=== PATIENT | female | born 1985 | race Two or more races ===

== ENCOUNTER → 2024-07-16 | Outpatient (CLI) | payer MEDICAID, SELFPAY ==
--- NOTE | 2024-07-16 13:30 | XR_ITS ---
Examination: Ultrasound soft tissue left labia TECHNIQUE: Grayscale sonographic images soft tissue left labia Date and time: July 16, 2024 1556 hours FINDINGS: Cystic mass in the left labia majora, 2.5 x 1.2 x 2.4 cm IMPRESSION: Soft tissue cystic mass at the area of concern as above
== END | disposition home or self-care (01) ==
PROVIDERS: PCP Nurse Practitioner Family; Referring Provider Nurse Practitioner Family; Visit Provider Nurse Practitioner Family
DX: N89.8 Other specified noninflammatory disorders of vagina (principal)
CPT/HCPCS: 76705

== ENCOUNTER 2024-09-16 13:32 | Emergency (ER) | payer MEDICAID, SELFPAY ==
[2024-09-16 13:35] VITALS: BMI 35.7
[2024-09-16 13:53] VITALS: BP 125/82; PULSE 79; RESP 20; TEMP 36.7; O2SAT 97
--- NOTE | 2024-09-16 13:58 | PD.EDRME ---
Rapid Medical Screening Exam E Arrival date/time: 09/16/24 13:32 39-year-old female with no known medical history presents to the emergency room with a chief complaint of an abscess to her vaginal area that began Saturday and has progressively gotten worse. I have greeted and performed a focused initial assessment of this patient. A comprehensive ED assessment and evaluation of the patient, analysis of all test results, and completion of the medical decision making process will be conducted by additional ED providers. Chief Complaint: General Adult/Misc Complain Vital signs: Vital Signs Temperature 98.1 F 09/16/24 13:53 Pulse Rate 79 09/16/24 13:53 Respiratory Rate 20 09/16/24 13:53 Blood Pressure 125/82 09/16/24 13:53 Pulse Oximetry (%) 97 09/16/24 13:53 Oxygen Delivery Method Room Air 09/16/24 13:53 Vital signs reviewed by provider: Yes
[2024-09-16 14:29] LABS: Collection Type, Urine Clean Catch
[2024-09-16 14:34] LABS: Bilirubin,Urine Negative (Negative); Blood,Urine 1+ (Negative); Clarity,Urine Clear (Clear/Hazy); Color,Urine Yellow (Lt Yel-Yel); Culture Indicated,Urine Not Indicated; Glucose, Urine Negative (Negative); Ketones,Urine Negative (Negative); Leukocyte Esterase,Urine Negative (Negative); Nitrite,Urine Negative (Negative); PH,Urine 6.5 (5.0-7.0); Protein,Urine Trace (Neg - Trace); RBC,Urine 6 /hpf (0-3); Specific Gravity,Urine 1.024 (1.001-1.035); Squamous Epithelial Cell,Urine 2 /hpf (0-5); Urobilinogen,Urine 2.0 mg/dL (0.0-1.0); WBC,Urine 2 /hpf (0-5)
--- NOTE | 2024-09-16 17:23 | EDNOTE_ITS ---
<Statement entered by Jeannette Lynch MD - 09/21/24 17:25> As co-signing physician, I was present and available for consult prn. I concur with the plan and care as documented by the midlevel provider. ED General RME/HPI General Chief complaint: General Adult/Misc Complain Stated complaint: BALL ON INTIMATE PART SENT BY PCP FOR CARE Time Seen by Provider: 09/16/24 17:04 Arrival date/time: 09/16/24 13:32 RME / HPI RME / HPI narrative: 39-year-old female with no known medical history presents to the emergency room with a chief complaint of an abscess to her vaginal area that began Saturday and has progressively gotten worse. Severity of symptoms moderate. Patient denies any fever. Denies any other complaints. Patient told me that several months ago she had the same episode and was given antibiotic which resolved on its own. This time it hurts to walk. Seen by PCP and was referred here for further management Related Data Previous Rx's ?Medication ?Instructions ?Recorded Cyclobenzaprine * (FLEXERIL *) 10 mg PO HS PRN HEADACH E #10 tabs 01/28/16 naproxen 500 mg tablet (Naprosyn) 500 mg PO Q12H #20 t abs 03/22/17 aluminum-mag hydroxide-simethicone 10 ml PO TID PRN dy spepsia #355 mL 03/26/22 200 mg-200 mg-20 mg/5 mL oral susp (Advanced Antacid-Antigas) clindamycin HCl 300 mg capsule 300 mg PO Q8H 7 days #2 1 caps 09/16/24 ibuprofen 800 mg tablet 800 mg PO Q8H PRN pain #30 t abs 09/16/24 Allergies Allergy/AdvReac Type Severity Reaction Status Date / Time No Known Allergies Allergy Verified 09/16/24 13:38 Review of Systems Review of Systems Narrative Review of Systems: Review of system reviewed and within normal limits except mentioned in HPI ED Exam Narrative Physical exam: VITAL SIGNS: Reviewed. GENERAL APPEARANCE: Alert and interactive, follows commands, no acute distress, HEAD AND FACE: Non-traumatic. ENT: PERRL, pink conjunctivitis, eyelid no trauma, Mucous membrane moist. NECK: Supple, nontender, no nuchal rigidity. CHEST: No tenderness, no crepitus, no paradoxical movement, no retractions. LUNGS: Clear, well ventilated, symmetric, no rales, no wheezing, no ronchi, no stridor, good breath sounds bilaterally. HEART: Regular rate, regular rhythm, no murmur, no gallops. ABDOMEN: Soft, positive bowel sounds, nondistended, no guarding, nontender, no rebound, no masses, RECTAL: Deferred. GENITAL: 4 x 4 centimeter fluctuant swelling, left inferior aspect of the vaginal wall NEUROLOGICAL: Gross motor function intact sensory function intact, Appropriate for age. MUSCULOSKELETAL: low back nontender, full range of motion. EXTREMITIES: Nontender, full range of motion. SKIN: Color pink, dry, no rash, no lacerations, no abrasions, no contusions. LYMPHATICS: Deferred. Course Quality Measures none Orders Category Date Time Status Pelvic Exam X1 Care 09/16/24 13:57 Active UA, C/S IF [Urinalysis, C/S if Indicated] Stat Lab 09/16/24 14:24 Completed Acetaminophen Tab [Tylenol ES Tab] Med 09/16/24 17:22 Once 1,000 mg PO X1 ONE Clindamycin [Cleocin] Med 09/16/24 17:22 Once 300 mg PO X1 ONE Ketorolac Inj [Toradol Inj] Med 09/16/24 17:22 Once 30 mg IM X1 ONE Vital Signs Vital signs: Vital Signs Temperature 98.1 F 09/16/24 13:53 Pulse Rate 79 09/16/24 13:53 Respiratory Rate 20 09/16/24 13:53 Blood Pressure 125/82 09/16/24 13:53 Pulse Oximetry (%) 97 09/16/24 13:53 Oxygen Delivery Method Room Air 09/16/24 13:53 PROCEDURES: Abscess I/D Site: other (Vaginal area) Side (if applicable): left Sedation/analgesia: none Local Anesthetic: lidocaine 1% Amount of anesthesia used (mL): 8 Technique: incised with #11 blade Amount of fluid expressed (mL): 10 Irrigation: Yes Packing used?: plain Complications: pain Discharge Plan Plan Patient Disposition: HOME (Self Care) Discharge Disposition comment: Stable Prescriptions/Referrals Prescriptions/Med Rec: New ibuprofen 800 mg tablet 800 mg PO Q8H PRN (Reason: pain) Qty: 30 0RF clindamycin HCl 300 mg capsule 300 mg PO Q8H 7 Days Qty: 21 0RF No Action Cyclobenzaprine * (FLEXERIL *) 10 MG tablet 10 mg PO HS PRN (Reason: HEADACHE) Qty: 10 0RF naproxen [Naprosyn] 500 mg tablet 500 mg PO Q12H Qty: 20 0RF Rx Instructions: administer with food or milk alum-mag hydroxide-simeth [Advanced Antacid-Antigas] 200-200-20 mg/5 mL suspension 10 ml PO TID PRN (Reason: dyspepsia) Qty: 355 0RF Rx Instructions: administer between meals and at bedtime Referrals: No Primary/Family,Physician [Primary Care Provider] - In 1 week Problem List Clinical Impression: Infected cyst of Bartholin gland duct Patient/Caregiver Discharge Instructions Discharge Activity: activity as tolerated Education Materials: ED Bartholins Cyst IandD Additional Instructions: Thank you for the opportunity for serving you today. You are stable for discharged . You are advised to: Follow-up with your PCP in 1 to 2 days and asked for referral to [facility] [facility] Return to ED for worsening of symptoms Increase oral fluids Take medication as prescribed Please mobilize the packing by pulling 1 to 2 cm every day for the next 6 days and totally pull out in 6 days. Change the top dressing only Print Language: Tuvaluan Stand Alone Forms: Ashley Award Info., Patient Portal Info Letter HAIM/CHUCK Supervising Physician HAIM/CHUCK Supervising Physician: MD Caitlin [facility] Narrative MDM hospital course: 39-year-old female with no known medical history presents to the emergency room with a chief complaint of an abscess to her vaginal area that began Saturday and has progressively gotten worse. Severity of symptoms moderate. Patient denies any fever. Denies any other complaints. Patient told me that several months ago she had the same episode and was given antibiotic which resolved on its own. This time it hurts to walk. Seen by PCP and was referred here for further management Incision and drainage was done by me, see procedure notes. Patient tolerated the procedure well. patient received Toradol IM Tylenol, and clindamycin p.o. Patient appears nontoxic and hemodynamically stable .Decision to discharge the patient. The patient/family was given an opportunity to ask questions and understood their discharge instructions. Discharge instructions specifically included follow up provider and time frame, current and/or new medications and possible side effects, indications for sooner follow up or return to the emergency department, and the expected course of current diagnosis. Patient reports feeling better as well and giving evidence of significant clinical improvement, I believe patient is now a candidate for discharge. Lab Interpretation Lab(s) interpretation(s): Urinalysis came back unremarkable. Imaging Imaging interpretation: none Medication Administration(s) none Diagnosis Differential diagnosis: Vaginal cellulitis vaginal abscess Bartholin cyst abscess Most likely dx, and/or detailed dx discussion: Bartholin cyst abscess
[2024-09-16] MEDS: ACETAMINOPHEN 500 MG TABLET 1000 MG PO (17:50)
[2024-09-16] MEDS: CLINDAMYCIN 150 MG CAPSULE 300 MG PO (17:51)
[2024-09-16] MEDS: KETOROLAC INJ 60 MG/2 ML VIAL 30 MG IM (17:51)
== END 2024-09-16 18:23 | disposition home or self-care (01) ==
PROVIDERS: Nurse Practitioner Family; Emergency Provider Emergency Medicine
DX: N75.0 Cyst of Bartholin's gland (principal)
CPT/HCPCS: 81001; 96372; 99283; J1885; A9270

== ENCOUNTER 2024-09-18 11:12 | Emergency (ER) | payer MEDICAID, SELFPAY ==
[2024-09-18 11:14] VITALS: BMI 31.5
[2024-09-18 11:35] VITALS: BP 122/87; PULSE 81; RESP 17; TEMP 36.8; O2SAT 96
[2024-09-18 11:36] VITALS: BMI 31.5
--- NOTE | 2024-09-18 12:00 | EDNOTE_ITS ---
ED General RME/HPI General Chief complaint: Wound Recheck / Suture Removal Stated complaint: DRESSING CHANGE Time Seen by Provider: 09/18/24 11:30 Arrival date/time: 09/18/24 11:12 Patient is requesting repacking a packing from a Bartholin cyst abscess that had been drained several days ago. The packing is come out. Patient denies fever chills chest pain shortness of breath or difficulty breathing. Related Data Previous Rx's ?Medication ?Instructions ?Recorded Cyclobenzaprine * (FLEXERIL *) 10 mg PO HS PRN HEADACH E #10 tabs 01/28/16 naproxen 500 mg tablet (Naprosyn) 500 mg PO Q12H #20 t abs 03/22/17 aluminum-mag hydroxide-simethicone 10 ml PO TID PRN dy spepsia #355 mL 03/26/22 200 mg-200 mg-20 mg/5 mL oral susp (Advanced Antacid-Antigas) clindamycin HCl 300 mg capsule 300 mg PO Q8H 7 days #2 1 caps 09/16/24 ibuprofen 800 mg tablet 800 mg PO Q8H PRN pain #30 t abs 09/16/24 Allergies Allergy/AdvReac Type Severity Reaction Status Date / Time No Known Allergies Allergy Verified 09/18/24 11:13 Review of Systems Review of Systems Narrative Review of Systems: GEN: No fever, no chills, no weight loss EYES: No discharge, no visual changes, no pain HEENT: No ear pain, no congestion, no sore throat PULM: No shortness of breath, no cough, no congestion CV: No chest pain, no dyspnea on exertion, no palpitations GI: No nausea, no vomiting, no diarrhea, no pain, no constipation : No frequency, no urgency, no dysuria MUSC/SKEL: No joint pain, no back pain SKIN: No rash PSYCH: No hallucinations, no depression HEME/LYMPH: No easy bleeding or bruising tendencies NEURO: No weakness, no headache Past Medical History Past Medical History CARDIAC: Negative Cardiac Disorders or Congestive Heart Failure RESPIRATORY: Negative Chronic Obstructive Pulmonary Disease (COPD) or Asthma GENITOURINARY: Negative Renal Disease ENDOCRINE: Negative Diabetes Mellitus Type 1 or Diabetes Mellitus Type 2 HEMATOLOGIC: Negative Sickle Cell Disease Surgical History SURGICAL: Positive Pacemaker and Section (X2) Social History SMOKING STATUS: Never smoker ED Exam Narrative Physical exam: [General: Obese not in any acute distress Head normocephalic HEENT: Within acceptable limits Neck is supple nontender Chest equal chest rise nontender to palpation Respiratory: Clear to auscultation no wheezes crackles or rubs CV: Rate rhythm is regular no murmurs rubs or clicks Abdomen is distended secondary to body habitus soft nontender no masses positive bowel sounds all 4 quadrants Back: No CVA tenderness no spinous process tenderness from cervical spine thoracic and lumbar spine Skin: Left labial minora I&D site approximately 1 cm laceration minimal surrounding erythema no edema no exudate. Otherwise skin is intact no petechiae rash induration ulceration or crepitus Extremities: Moving all extremity against resistance cap refill less than 2 seconds neurosensory intact Neuro: Awake alert oriented x3 Glascow coma 15 no focal deficits] Course Course Course Narrative: Site was repacked with quarter inch plain gauze without complication patient tolerated the procedure well. Quality Measures none Vital Signs Vital signs: Vital Signs Temperature 98.2 F 09/18/24 11:35 Pulse Rate 81 09/18/24 11:35 Respiratory Rate 17 09/18/24 11:35 Blood Pressure 122/87 H 09/18/24 11:35 Pulse Oximetry (%) 96 09/18/24 11:35 Oxygen Delivery Method Room Air 09/18/24 11:35 Discharge Plan Plan Patient Disposition: HOME (Self Care) Patient condition on transfer: Stable Prescriptions/Referrals Prescriptions/Med Rec: No Action Cyclobenzaprine * (FLEXERIL *) 10 MG tablet 10 mg PO HS PRN (Reason: HEADACHE) Qty: 10 0RF naproxen [Naprosyn] 500 mg tablet 500 mg PO Q12H Qty: 20 0RF Rx Instructions: administer with food or milk ibuprofen 800 mg tablet 800 mg PO Q8H PRN (Reason: pain) Qty: 30 0RF clindamycin HCl 300 mg capsule 300 mg PO Q8H 7 Days Qty: 21 0RF alum-mag hydroxide-simeth [Advanced Antacid-Antigas] 200-200-20 mg/5 mL suspension 10 ml PO TID PRN (Reason: dyspepsia) Qty: 355 0RF Rx Instructions: administer between meals and at bedtime Referrals: De Ram MD [Physician] - In 1 week Problem List Clinical Impression: Dressing change Patient/Caregiver Discharge Instructions Other Activity Instructions:: Allow the packing to remain for the next several days each day pull a small amount further out and trim off. If packing comes out return to the provider. Continue take all your medications as prescribed. Print Language: Hungarian Stand Alone Forms: Ashley Award Info., Work/School Release, Patient Portal Info Letter PA/HAND STAMPER Supervising Physician PA/HAND STAMPER Supervising Physician: Ethan Hewitt ENP
== END 2024-09-18 12:06 | disposition home or self-care (01) ==
LOC: SERX 12:15
PROVIDERS: Emergency Provider Family Medicine; PCP Nurse Practitioner Family
DX: Z48.01 Encounter for change or removal of surgical wound dressing (principal); N75.0 Cyst of Bartholin's gland
CPT/HCPCS: 99282

== ENCOUNTER 2024-09-19 12:21 | Emergency (ER) | payer MEDICAID, SELFPAY ==
[2024-09-19 12:44] VITALS: BMI 30.2
[2024-09-19 12:45] VITALS: BP 134/92; PULSE 71; RESP 18; TEMP 36.8; O2SAT 97
--- NOTE | 2024-09-19 12:59 | EDNOTE_ITS ---
ED Wound/Laceration-RME/HPI General Chief Complaint: Wound Recheck / Suture Removal Stated Complaint: UNABLE TO REMOVE PACKING AT HOME Time Seen by Provider: 09/19/24 12:25 Arrival date/time: 09/19/24 12:21 39-year-old female with recent Bartholin cyst presents to the ER today for reevaluation of the Bartholin cyst Limitations: no limitations Related Data Previous Rx's ?Medication ?Instructions ?Recorded Cyclobenzaprine * (FLEXERIL *) 10 mg PO HS PRN HEADACH E #10 tabs 01/28/16 naproxen 500 mg tablet (Naprosyn) 500 mg PO Q12H #20 t abs 03/22/17 aluminum-mag hydroxide-simethicone 10 ml PO TID PRN dy spepsia #355 mL 03/26/22 200 mg-200 mg-20 mg/5 mL oral susp (Advanced Antacid-Antigas) ibuprofen 800 mg tablet 800 mg PO Q8H PRN pain #30 t abs 09/16/24 Allergies Allergy/AdvReac Type Severity Reaction Status Date / Time No Known Allergies Allergy Verified 09/18/24 11:13 Review of Systems Review of Systems Systems Reviewed: All systems reviewed, normal except as documented Constitutional Constitutional: Reports system reviewed and no additional complaints, except as documented, Denies fever(s) and Denies headache(s) Eyes Eyes: Reports system reviewed and no additional complaints, except as documented and Denies blurry vision ENT Ears, Nose, Mouth, and Throat: Reports system reviewed and no additional complaints, except as documented, Denies headache(s), Denies nasal congestion and Denies nasal discharge Cardiovascular Cardiovascular: Reports system reviewed and no additional complaints, except as documented, Denies chest pain and Denies dyspnea Respiratory Respiratory: Reports system reviewed and no additional complaints, except as documented, Denies chest congestion, Denies cough and Denies dyspnea Gastrointestinal Gastrointestinal: Reports system reviewed and no additional complaints, except as documented and Denies abdominal pain Genitourinary Genitourinary: Reports system reviewed and no additional complaints, except as documented and Reports other (Bartholin cyst vagina) Integumentary/Breasts Skin/Breast: Reports system reviewed and no additional complaints, except as documented and Denies rash Neurologic Neurologic: Reports system reviewed and no additional complaints, except as documented, Reports as per HPI and Denies headache(s) Past Medical History Past Medical History CARDIAC: Negative Cardiac Disorders or Congestive Heart Failure RESPIRATORY: Negative Chronic Obstructive Pulmonary Disease (COPD) or Asthma GENITOURINARY: Negative Renal Disease ENDOCRINE: Negative Diabetes Mellitus Type 1 or Diabetes Mellitus Type 2 HEMATOLOGIC: Negative Sickle Cell Disease Surgical History SURGICAL: Positive Pacemaker and Section (X2) Social History SMOKING STATUS: Never smoker ED Exam General Limitations: Present no limitations General appearance: Present alert and in no apparent distress Head Head exam: Present atraumatic, normocephalic and normal inspection Eye Eye exam: Present normal appearance, PERRL and EOMI; Absent conjunctival injection ENT ENT exam: Present normal exam, normal oropharynx and mucous membranes moist Neck Neck exam: Present normal inspection, full ROM and trachea midline Chest Chest inspection: Present normal inspection and symmetric chest wall rise Respiratory Respiratory exam: Present normal lung sounds bilaterally Cardiovascular Cardiovascular exam: Present regular rate, normal rhythm and normal heart sounds Abdominal Exam Abdominal exam: Present soft and normal bowel sounds Genitals Female CloseUp: 2 1. Bartholin cyst draining Extremities Exam Extremities exam: Present normal inspection and full ROM Back Exam Back exam: Present normal inspection and full ROM Neurological Exam Neurological exam: Present alert, oriented X3 and CN II-XII intact Psychiatric Psychiatric exam: Present normal affect and normal mood Skin Skin exam: Present warm, dry, intact and normal color Course Quality Measures none Vital Signs Vital signs: Vital Signs Temperature 98.2 F 09/19/24 12:45 Pulse Rate 71 09/19/24 12:45 Respiratory Rate 18 09/19/24 12:45 Blood Pressure 134/92 H 09/19/24 12:45 Pulse Oximetry (%) 97 09/19/24 12:45 Oxygen Delivery Method Room Air 09/19/24 12:45 O2 saturation 97% room air with normal limits Wound / Laceration MDM Narrative MDM Narrative:: 39-year-old female with recent Bartholin cyst presents to the ER today for reevaluation of the Bartholin cyst On exam patient has a Bartholin cyst which has improved significantly since first visit. Patient does have a small bit of packing which is removed wound is explored I do not believe repacking is necessary at this time Patient hemodynamically stable reports symptoms have significantly improved patient has no surrounding erythema Patient discharged home in no distress to follow-up with primary care doctor in the next 24 to 48 hours and for any worsening symptoms to return to the ER immediately Patient data External records reviewed:: [facility] previous records Clinical information provided by:: patient Social determinants that could affect healthcare access:: none Patient has the following chronic illnesses:: None How is presenting disease/condition affected by chronic disease/condition?: no chronic disease Evaluation data The following diagnostics were reviewed and interpreted by me:: other (specify) (N/A) Lab and/or radiology exams considered but not ordered:: Consider not ordered Interpretation Summary: N/A Medications / Prescriptions Medications or Prescriptions considered but not ordered:: Given no meds Medication administrations:: No meds Consultations Consultation(s) initiated? (list below): No Diagnosis Wound Differential Diagnosis: laceration, abscess and abrasion Most likely diagnosis given after review of the tests above:: Bartholin cyst Admission Indicated Admission indicated?: not indicated Admission Request Was there a request for admission?: No Disposition Plan Disposition Plan: Discharge Discharge Attestation Discharge Attestation: The patient and all family members were given an opportunity to ask questions and understood the discharge instructions. Discharge instructions specifically effects, indications for sooner follow up or return to the emergency department, and the expected course of current diagnosis. Patient condition: Stable Discharge Plan Plan Patient Disposition: HOME (Self Care) Discharge Disposition comment: Stable Prescriptions/Referrals Prescriptions/Med Rec: No Action Cyclobenzaprine * (FLEXERIL *) 10 MG tablet 10 mg PO HS PRN (Reason: HEADACHE) Qty: 10 0RF naproxen [Naprosyn] 500 mg tablet 500 mg PO Q12H Qty: 20 0RF Rx Instructions: administer with food or milk ibuprofen 800 mg tablet 800 mg PO Q8H PRN (Reason: pain) Qty: 30 0RF alum-mag hydroxide-simeth [Advanced Antacid-Antigas] 200-200-20 mg/5 mL suspension 10 ml PO TID PRN (Reason: dyspepsia) Qty: 355 0RF Rx Instructions: administer between meals and at bedtime Problem List Clinical Impression: Infected cyst of Bartholin gland duct, Change of dressing Patient/Caregiver Discharge Instructions Education Materials: Bartholin Cyst and Abscess Additional Instructions: Please follow up with your primary care doctor in the next 24-48hrs for any worsening symptoms return here immediately Print Language: Wolof Stand Alone Forms: Ashley Award Info., Patient Portal Info Letter PA/ART PSYCHOTHERAPIST OR THERAPIST Supervising Physician PA/ART PSYCHOTHERAPIST OR THERAPIST Supervising Physician: dr gupta
== END 2024-09-19 13:09 | disposition home or self-care (01) ==
LOC: SERX 13:19
PROVIDERS: Emergency Provider Nurse Practitioner Primary Care
DX: Z48.00 Encounter for change or removal of nonsurgical wound dressing (principal); N75.0 Cyst of Bartholin's gland
CPT/HCPCS: 99282

== ENCOUNTER → 2024-09-30 | Outpatient (CLI) | payer MEDICAID, SELFPAY ==
--- NOTE | 2024-09-30 | XR_ITS ---
Examination: Cervical spine 3 views Technique one AP lateral coned AP odontoid cervical spine 3 views Date and time: September 30, 2024 1131 hours INDICATIONS: Neck pain radiating to both shoulders beginning 2 weeks ago. FINDINGS: Satisfactory alignment cervical vertebral bodies. No cervical fracture. Intact odontoid. No significant cervical disc narrowing. IMPRESSION: No cervical fracture No significant cervical disc narrowing As clinically warranted, consider MRI cervical spine without contrast follow-up to assess for soft tissue disc protrusion producing radicular shoulder pain
--- NOTE | 2024-09-30 | XR_ITS ---
Examination: Shoulder,left, 3 views Technique: Shoulder AP internal rotation, AP external rotation, Y view shoulder, 3 views Exam date and time :September 30, 2024 1125 hours INDICATIONS: Left shoulder pain 2 weeks. FINDINGS: Moderate osteopenia. Mild narrowing glenohumeral joint. No shoulder fracture or dislocation. Negative for calcific tendinitis IMPRESSION: Mild narrowing glenohumeral joint
== END | disposition home or self-care (01) ==
LOC: CDIM 11:08
PROVIDERS: PCP Nurse Practitioner Family; Referring Provider Nurse Practitioner Family; Visit Provider Nurse Practitioner Family
DX: M75.52 Bursitis of left shoulder (principal); M25.812 Other specified joint disorders, left shoulder
CPT/HCPCS: 72040; 73030

== ENCOUNTER 2024-11-13 17:32 | Emergency (ER) | payer MEDICAID, SELFPAY ==
[2024-11-13 18:03] VITALS: BP 118/89; PULSE 64; RESP 18; TEMP 36.9; O2SAT 98; BMI 24.2
--- NOTE | 2024-11-13 18:32 | EDNOTE_ITS ---
ED Skin Abcess FB-RME/HPI General Chief complaint: Skin/Abscess/Foreign Body Stated complaint: Cysts need to be drained, vagina Time Seen by Provider: 11/13/24 18:19 Arrival date/time: 11/13/24 17:32 RME / HPI RME / HPI narrative: 39-year-old female patient came in for evaluation regarding swelling to her left lower labia. Been having the swelling, and goes for the last 1 month, was seen by PCP, and was started on doxycycline and clindamycin. Patient came here because thinking that we need to do I&D. Denies any fever denies any other complaints no medication was taken prior to ER visit scheduled to be seen by CABLE INSTALLER REPAIRER HELPER next week. Related Data Previous Rx's ?Medication ?Instructions ?Recorded Cyclobenzaprine * (FLEXERIL *) 10 mg PO HS PRN HEADACH E #10 tabs 01/28/16 naproxen 500 mg tablet (Naprosyn) 500 mg PO Q12H #20 t abs 03/22/17 aluminum-mag hydroxide-simethicone 10 ml PO TID PRN dy spepsia #355 mL 03/26/22 200 mg-200 mg-20 mg/5 mL oral susp (Advanced Antacid-Antigas) ibuprofen 800 mg tablet 800 mg PO Q8H PRN pain #30 t abs 09/16/24 ibuprofen 600 mg tablet 600 mg PO Q8H PRN pain #30 t abs 11/13/24 nystatin-triamcinolone 100,000 1 applic topical BID #6 0 grams 11/13/24 unit/gram-0.1 % topical ointment Allergies Allergy/AdvReac Type Severity Reaction Status Date / Time No Known Allergies Allergy Verified 11/13/24 17:37 Review of Systems Review of Systems Narrative Review of Systems: Review of system reviewed and within normal limits except mentioned in HPI ED Exam Narrative Physical exam: VITAL SIGNS: Reviewed. GENERAL APPEARANCE: Alert and interactive, follows commands, no acute distress, HEAD AND FACE: Non-traumatic. ENT: PERRL, pink conjunctivitis, eyelid no trauma, Mucous membrane moist. NECK: Supple, nontender, no nuchal rigidity. CHEST: No tenderness, no crepitus, no paradoxical movement, no retractions. LUNGS: Clear, well ventilated, symmetric, no rales, no wheezing, no ronchi, no stridor, good breath sounds bilaterally. HEART: Regular rate, regular rhythm, no murmur, no gallops. ABDOMEN: Soft, positive bowel sounds, nondistended, no guarding, nontender, no rebound, no masses, RECTAL: Deferred. GENITAL: Genital exam was done by me with a female nurse around all the time, I noticed some mild swelling to the left lower labia with no tenderness, alert with erythematous nonfluctuant NEUROLOGICAL: Gross motor function intact sensory function intact, Appropriate for age. MUSCULOSKELETAL: low back nontender, full range of motion. EXTREMITIES: Nontender, full range of motion. SKIN: Color pink, dry, no rash, no lacerations, no abrasions, no contusions. LYMPHATICS: Deferred. Course Quality Measures none Orders Category Date Time Status Ketorolac Inj [Toradol Inj] Med 11/13/24 18:35 Discontinued 30 mg IM X1 ONE Vital Signs Vital signs: Vital Signs Temperature 98.5 F 11/13/24 18:03 Pulse Rate 64 11/13/24 18:03 Respiratory Rate 18 11/13/24 18:03 Blood Pressure 118/89 H 11/13/24 18:03 Pulse Oximetry (%) 98 11/13/24 18:03 Oxygen Delivery Method Room Air 11/13/24 18:03 Skin / Abscess / Foreign Body MDM Narrative MDM Narrative:: 39-year-old female patient came in for evaluation regarding swelling to her left lower labia. Been having the swelling, and goes for the last 1 month, was seen by PCP, and was started on doxycycline and clindamycin. Patient came here because thinking that we need to do I&D. Denies any fever denies any other complaints no medication was taken prior to ER visit scheduled to be seen by CABLE INSTALLER REPAIRER HELPER next week. Patient clinically is having Bartholin cyst, I did not notice any sign of abscess at this time there is no need to do I&D. I advised the patient to continue taking the antibiotic that was prescribed by PCP and see the CABLE INSTALLER REPAIRER HELPER next week. Patient stable for discharge home. Patient data External records reviewed:: None Clinical information provided by:: patient Social determinants that could affect healthcare access:: none Patient has the following chronic illnesses:: None How is presenting disease/condition affected by chronic disease/condition?: no chronic disease Evaluation data The following diagnostics were reviewed and interpreted by me:: other (specify) (None) Lab and/or radiology exams considered but not ordered:: None Interpretation Summary: None Medications / Prescriptions Medications or Prescriptions considered but not ordered:: None Medication administrations:: Medication Administration History Discontinued Medications Ketorolac Tromethamine (Ketorolac Inj 60 Mg/2 Ml Vial) 30 mg IM X1 ONE Stop: 11/13/24 18:36 None Consultations Consultation(s) initiated? (list below): No Diagnosis Skin/Abscess Differential Diagnosis: abscess of skin or subcutaneous tissue, cellulitis and other (Bartholin cyst) Most likely diagnosis given after review of the tests above:: Bartholin cyst Admission Indicated Admission indicated?: not indicated Admission Request Was there a request for admission?: No Disposition Plan Disposition Plan: Discharge Discharge Attestation Discharge Attestation: The patient was given an opportunity to ask questions and understood the discharge instructions. Discharge instructions specifically effects, indications for sooner follow up or return to the emergency department, and the expected course of current diagnosis. Patient condition: Stable Discharge Plan Plan Patient Disposition: HOME (Self Care) Discharge Disposition comment: Stable Prescriptions/Referrals Prescriptions/Med Rec: New nystatin-triamcinolone 100,000-0.1 unit/gram-% ointment 1 applic topical BID Qty: 60 0RF ibuprofen 600 mg tablet 600 mg PO Q8H PRN (Reason: pain) Qty: 30 0RF No Action Cyclobenzaprine * (FLEXERIL *) 10 MG tablet 10 mg PO HS PRN (Reason: HEADACHE) Qty: 10 0RF naproxen [Naprosyn] 500 mg tablet 500 mg PO Q12H Qty: 20 0RF Rx Instructions: administer with food or milk ibuprofen 800 mg tablet 800 mg PO Q8H PRN (Reason: pain) Qty: 30 0RF alum-mag hydroxide-simeth [Advanced Antacid-Antigas] 200-200-20 mg/5 mL suspension 10 ml PO TID PRN (Reason: dyspepsia) Qty: 355 0RF Rx Instructions: administer between meals and at bedtime Problem List Clinical Impression: Bartholin gland cyst, Candidiasis of vagina Patient/Caregiver Discharge Instructions Discharge Activity: activity as tolerated Education Materials: Candidiasis Vaginal, ED Bartholin's Cyst (No Infection) Additional Instructions: Thank you for the opportunity for serving you today. You are stable for discharged . You are advised to: Follow-up with your PCP in 1 to 2 days Return to ED for worsening of symptoms Increase oral fluids Take medication as prescribed apply twice a day for 7 days as needed/ Print Language: Kinyarwanda Stand Alone Forms: Ashley Award Info., Patient Portal Info Letter PA/LNA Supervising Physician HAIM/CHUCK Supervising Physician: MD Gerhard
[2024-11-13] MEDS: KETOROLAC INJ 60 MG/2 ML VIAL 30 MG IM (18:50)
== END 2024-11-13 19:31 | disposition home or self-care (01) ==
PROVIDERS: Emergency Provider Emergency Medicine; PCP Nurse Practitioner Family
DX: N75.0 Cyst of Bartholin's gland (principal); B37.31 Acute candidiasis of vulva and vagina
CPT/HCPCS: 96372; 99282; J1885

== ENCOUNTER 2025-01-05 14:18 | Outpatient (AMB) | payer MEDICAID, SELFPAY ==
[2025-01-05 15:09] VITALS: BP 128/86; PULSE 81; RESP 16; TEMP 36.4; O2SAT 97; BMI 25.2
--- NOTE | 2025-01-05 15:09 | AMB.GYNCLNOT ---
Vital Signs 01/05/25 15:09 Height 1.65 m Height Method Stated Weight 68.663 kg Weight Measurement Method Standing Scale BMI 25.2 BP 128/86 H Blood Pressure Source Automatic Cuff Blood Pressure Location Left Upper Arm Position Sitting Respiration 16 Pulse 81 Pulse Source Monitor Temp 97.6 F Temp Source Oral Pulse Oximetry (%) 97 Oxygen Delivery Method Room Air Allergies/Home Meds Allergies & Medications Allergies No Known Allergies Allergy (Verified 01/05/25 15:09) Medication Reconciliation Cyclobenzaprine * (FLEXERIL *) 10 mg PO HS PRN HEADACHE #10 tabs 01/28/16 [Rx Confirmed 01/05/25] naproxen 500 mg tablet (Naprosyn) 500 mg PO Q12H #20 tabs 03/22/17 [Rx Confirmed 01/05/25] aluminum-mag hydroxide-simethicone 200 mg-200 mg-20 mg/5 mL oral susp (Advanced Antacid-Antigas) 10 ml PO TID PRN dyspepsia #355 mL 03/26/22 [Rx Confirmed 01/05/25] ibuprofen 800 mg tablet 800 mg PO Q8H PRN pain #30 tabs 09/16/24 [Rx Confirmed 01/05/25] ibuprofen 600 mg tablet 600 mg PO Q8H PRN pain #30 tabs 11/13/24 [Rx Confirmed 01/05/25] nystatin-triamcinolone 100,000 unit/gram-0.1 % topical ointment 1 applic topical BID #60 grams 11/13/24 [Rx Confirmed 01/05/25] estradiol 0.01% (0.1 mg/gram) vaginal cream 1 g vaginal QWEEK #42 grams 01/05/25 [Rx] Intake Visit Data Collection New Patient or Established: Established Patient (seen at [facility] within 3 years) Reason for Visit:: REFERRAL FOR BARTHOLIN GLAND CYST Seen by Clinical Staff ONLY (RN/MA): No Director Of Public Health Required: No Do You Feel Safe at Home: Yes Authorities Contacted: N/A PCP or OBGYN visit in last 3 months: Yes Hx Now: No Are you currently on any form of Control: Yes Last menstrual period: 02/02/23 Pain Present Currently: No Pain Scale Used: Holt-Bryan/Numerical Pain scale:: 0 Smoking Status Smoking Status: Never smoker Immunizations Flu Vaccine in the Last 12 Months: Yes Flu Vaccine Exclusion Criteria: Already Received 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 Cleaner History Menstrual regularity: regular Flow: normal Monthly: Yes How many days does period last: 5 Age at menarche: 13 Menopausal: Yes Currently sexually active: Yes 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 1. Little interest or pleasure in doing things: not at all 2. Feeling down, depressed, or hopeless: not at all Total score: 0 PHQ-9 3. Trouble falling or staying asleep, or sleeping too much: Not at all 4. Feeling tired or having little energy: Not at all 5. Poor appetite or overeating: Not at all 6. Feeling bad about yourself - or that you are a failure or have let yourself or your family down: Not at all 7. Trouble concentrating on things, such as reading the newspaper or watching television: Not at all 8. Moving or speaking so slowly that other people could have noticed? - Or the opposite - being so fidgety or restless that you have been moving around a lot more than usual: not at all 9. Thoughts that you would be better off or of hurting yourself in some way: Not at all Total score: 0 Source: Developed by Drs. Wolfgang Fenton, Bijal Sandoval, Jacques Laguerre and colleagues, with an educational onel from [employer]. Depression screen completed yes Social History Living Situation History Marital Status: Lives With: Family Housing: House Tobacco History Smoking Status: Never smoker Second Hand Smoke Exposure: No Alcohol History Alcohol Intake: Never Domestic Abuse History Do You Feel Safe at Home: Yes History of Present Illness HPI Narrative 39 years old P2 with early menopause and recurrent Left Bartholin cyst wants to know if excision is an option she is worried about possibility of malignancyin the cyst Review of Systems Review of Systems Systems Reviewed: All systems reviewed, normal except as documented Exam Narrative Physical exam: Alert and oriented x 3 no shortness of breath Pain no chest pain no palpitations Chest clear bilaterally no additional sounds, no wheezing no rales CVS regular rate and rhythm No CVAT Abdomen nontender, normal bowel sounds No guarding no rigidity No hernias External exam: Present normal external exam and other (left slight fullness in left Bartholin area / not needed drainage and is not infected ) Office Procedures [facility] LOC & Office Proc's Nursing/Assessment Patient Status: Established Patient OB Clinic Nursing Assessment: Medication Reconciliation, Update PMH in EMR and Vital Signs OB Clinic Coordination of Care: Complex Care and Chronic Disease 1-5, Consent,records obtained, informed consent, Education Simp Pt/Fam, 1 Ins Authorization, Lab and Imaging orders, Results/Orders obtained and Staff clarify orders Miscellaneous Interventions: Pelvic no cultures Established Patient Charge Established Patient Point Assignment: 130 Established Patient Point Charge: EP Level 4 (120-155) Assessment & Plan Diagnosis / Problem List (1) Bartholin gland cyst: Status: Inactive Plan: at this time there is just fullness in the left area of the Left bartholin gland (2) Early menopause occurring in patient age younger than 45 years: Status: Acute Plan: vaginal estradiol may help in prevention of recurrent Left Bartholin cyst Assessment and Plan: R/B and options discussed (3) Pacemaker: Status: Acute Plan: no oral HRT but can use vaginal estradiol Assessment and Plan: vaginal estradiol prescribed and follow up in 3 months (4) Vaginal atrophy: Status: Acute
== END 2025-01-05 15:32 | disposition home or self-care (01) ==
LOC: HODSOBC 14:18
PROVIDERS: PCP Nurse Practitioner Family; Referring Provider Nurse Practitioner Family; Supervising Provider Obstetrics & Gynecology; Visit Provider Obstetrics & Gynecology
DX: N75.0 Cyst of Bartholin's gland (principal); N95.2 Postmenopausal atrophic vaginitis; Z95.0 Presence of cardiac pacemaker
CPT/HCPCS: 99214; G0463